=== PATIENT | male | born 1960 | race Hispanic/Latino ===

== ENCOUNTER 2018-12-28 15:44 | Outpatient (CLI) | payer OTHER ==
--- NOTE | 2018-12-28 16:27 | RAD ---
LUMBAR SPINE TWO VIEWS: 12/28/18 HISTORY: Low back pain. FINDINGS: No fracture, subluxation or bony destruction seen. There are mild degenerative changes in the lower l umbar spine. IMPRESSION: Mild lumbar spondylosis. POS: OFF
--- NOTE | 2018-12-28 17:07 | RAD ---
RIGHT ELBOW FOUR VIEWS: 12/28/18 HISTORY: Right elbow pain without injury, work related. Arthrosis changes are noted involving the elbow joint with some subchondral cystic changes of the hum eral capitellum and some hypertrophic osteophytosis changes of the medial elbow joint. No acute fract ure or dislocation. No significant joint effusion. 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 POS: RRE
== END 2018-12-28 15:45 | disposition home or self-care (01) ==
LOC: BICRAD 15:44
PROVIDERS: ATTEND Internal Medicine
DX: M25.521 Pain in right elbow (principal); M54.5 Low back pain; M19.021 Primary osteoarthritis, right elbow; M47.816 Spondylosis without myelopathy or radiculopathy, lumbar region
CPT/HCPCS: 72100